=== PATIENT | female | born 1945 | race Caucasian/White ===

== ENCOUNTER → 2021-04-11 | Outpatient (CLI) | payer OTHER ==
[~2021-04-11] VITALS: Ht 157.5 cm; Wt 77.1 kg
[~2021-04-11] MED LIST: BENADRYL25 MG PO; KLONOPIN0.5 MG PO; LEVO-T100 MCG PO; NEURONTIN300 MG PO; PROTONIX40 M2 PO; VENLAFAXINE HC150 MG PO
--- NOTE | 2021-04-14 14:07 | PATH ---
[facility] [address] [place] [address] PATHOLOGY RPT PROCEDURE Name: RANDY LEE Room #: REG CHEYANNE Jauregui.#: [id number] Admission: 04/11/21 Date of : 43 Discharge: Report #: [id number] Path Case #: [id number] [facility] Accession Number: [id number] . 01 Material submitted: . gastrointestinal site - GASTRITIS R/O H. PYLORI . 01 Clinical history: . DYSPHAGIA, GASTRITIS . 02 Diagnosis: Gastric, endoscopic biopsy: - Gastric antral mucosa with features of mild reactive gastropathy. - An H. pylori immunohistochemical stain is negative for H. pylori-like organisms. - Negative for malignancy. . (ANK:mmrabia; 04/14/2021) QL 04/14/2021 1015 Local . 02 Electronically signed: . Jaclyn Coronel MD, Pathologist NPI- [id number] . 01 Gross description: . The specimen is received in formalin, labeled "Randy Lee, gastritis rule out H. pylori". Received are 2 segments of pale oliveira tissue ranging in size from 0.4 to 0.5 cm in maximum dimensions. The specimen is submitted entirely in cassette A1.([facility]; 04/11/2021) [facility] 04/11/2021 1645 Local . 02 Pathologist provided ICD-10: R13.10 . 02 CPT . 190732, [id number] Specimen Comment: A courtesy copy of this report has been sent to [phone], [phone] Specimen Comment: [id number] Specimen Comment: Report sent to / DR CARDOZO Specimen Comment: A duplicate report has been generated due to demographic updates. Performed at: [address] [id number] MD Garry Ferguson MD Phone: [phone] Performed at: [address] [id number] PATHOLOGY RPT PROCEDURE Name: RANDY LEE Room #: REG CLMelvi Bolanos.R.#: [id number] Admission: 04/11/21 Date of : 43 Discharge: Report #: [id number] Path Case #: [id number] [address] [id number] MD Jaclyn Coronel MD Phone: [phone]
--- NOTE | 2021-04-16 12:57 | P ---
[facility] [place] [address] PROCEDURE REPORT Name: EUNICE LEE Room #: REG CHEYANNE Shania.#: [id number] Admission: 04/11/21 Attend Phys: Bolivar Espana Discharge: Date of : 43 Report #: [id number] THIS REPORT FOR: cc: Manas Choudhary MD, Eric K. MD McElhinney, Christian C. MD ~ cc: Manas Choudhary MD DATE OF SERVICE: 04/11/2021 PROCEDURE PERFORMED: Upper endoscopy with biopsies and esophageal dilation. HISTORY OF PRESENT ILLNESS: The patient is a 75-year-old female, complains of dysphagia that has been ongoing for several years, reportedly had an upper endoscopy with dilation, which was helpful in the past, but this was many years ago. She does take Protonix for history of gastroesophageal reflux disease for the last several years. She denies any significant heartburn. DESCRIPTION OF PROCEDURE: The risks and benefits of the procedure were explained to the patient, those risks including but not limited to bleeding, perforation and the risk of sedation. She understood these risks and gave informed consent. Propofol was given per anesthesia. Next, using an Olympus standard upper endoscope, the scope was placed in the patient's mouth and advanced under direct vision through the esophagus, stomach, and into the second portion of the duodenum. The larynx was normal in appearance. The esophagus was normal throughout. The GE junction was normal. No evidence of stricture. No evidence of esophagitis. Overall, the gastric mucosa was normal. In the fundus and body, a mild gastritis was noted in the gastric antrum. Biopsies were obtained to rule out H. pylori. The pylorus was normal and patent. The duodenal bulb, first and second portion were all normal. The scope was then brought back up into the patient's stomach and a Savary guidewire was inserted through the scope, leaving the guidewire in place as the scope was then withdrawn. Next, a 48-[place] Savary dilation of the esophagus was then performed without difficulty. The wire and dilator removed. The scope was reintroduced into the patient's stomach. No evidence of mucosal tear was noted after dilation. The scope was then withdrawn and the procedure terminated. The patient tolerated the procedure well. IMPRESSION: 1. Mild gastritis. 2. Otherwise, normal upper endoscopy. RECOMMENDATIONS: 1. Await biopsy results. 2. Continue PPI therapy. 3. Observe status post dilation. If no improvement, could consider video [facility] [address] [place] [address] PROCEDURE REPORT Name: EUNICE LEE Room #: REG MAGNUSMelvi Mccrary#: [id number] Admission: 04/11/21 Attend Phys: Bolivar Espana Discharge: Date of : 43 Report #: [id number] swallow or esophageal manometry. Thank you for allowing me to participate in her care. <ELECTRONICALLY SIGNED> By: Bolivar Vargas MD 04/16/21 1257 0939 1233 Bolivar Vargas, /annabelle
== END | disposition home or self-care (01) ==
LOC: GI 07:45
PROVIDERS: ATTEND Specialist
DX: R13.19 Other dysphagia (principal); K31.9 Disease of stomach and duodenum, unspecified; K21.9 Gastro-esophageal reflux disease without esophagitis; F32.9 Major depressive disorder, single episode, unspecified; F41.9 Anxiety disorder, unspecified; Z98.890 Other specified postprocedural states; Z20.822 Contact with and (suspected) exposure to COVID-19; Z79.899 Other long term (current) drug therapy; Z88.0 Allergy status to penicillin; Z91.040 Latex allergy status; Z88.8 Allergy status to other drugs, medicaments and biological substances
CPT/HCPCS: 62110; 62900